=== PATIENT | female | born 1995 | race Caucasian/White ===

== ENCOUNTER 2017-08-27 23:09 | Emergency (ER) | payer MEDICAID, OTHER ==
[~2017-08-27] VITALS: Ht 157.5 cm; Wt 113.5 kg
[~2017-08-27 23:09] MED LIST: ALBU0.086 NEB; ALBU8I INH; DOXY100T PO; METR-1 PO; ULTR50TA PO
[2017-08-27 23:11] VITALS: BP 134/85; PULSE 86; RESP 16; TEMP 98.4; O2SAT 98
== END 2017-08-28 02:00 | disposition left against medical advice (07) ==
LOC: NED 23:09
DX: R51 Headache (principal); Z53.21 Procedure and treatment not carried out due to patient leaving prior to being seen by health care provider
CPT/HCPCS: 99281

== ENCOUNTER 2017-08-28 19:57 | Emergency (ER) | payer OTHER ==
[~2017-08-28] VITALS: Ht 157.5 cm; Wt 112.0 kg
[2017-08-28 19:59] VITALS: BP 157/87; PULSE 98; RESP 16; TEMP 98.7; O2SAT 96
--- NOTE | 2017-08-28 21:20 | PD ---
HPI Chief Complaint: Headache Time Seen by Provider: 21:16 Travel History International Travel<30 days: No Contact w/Intl Traveler<30days: No Traveled to known affect area: No History of Present Illness HPI 23 year-old female history of high-grade headache presents to emergency department today for evaluation of a migraine headache. Patient states this started yesterday. It is generalized, constant, ache. Mostly behind her eyes. States she has been nauseous and vomiting. Denies photophobia. Denies focal deficits or weakness. No recent illnesses, fever, or chills. States this is typical of her migraine headaches. She has no other symptoms to report. PFSH Past Medical History ADHD: No Asthma: Yes Depression: Yes Cancer: No Cardiovascular Problems: No Developmental Delay: No Diabetes: No Diminished Hearing: No GERD: Yes Psychiatric: No Migraines: Yes Seizures: Yes (ONE WHEN LITTLE FROM FEVER) Thyroid Disease: No Ulcer: No : 2 Para: 1 Miscarriage: 1 Past Surgical History Other Surgery: No Social History Alcohol Use: No Tobacco Use: Yes (1/2PPD) Substance Use: No (DENIES) Allergies-Medications (Allergen,Severity, Reaction): Coded Allergies: bee venom protein (honey bee) (Verified Allergy, Severe, 08/28/17) acetaminophen (Verified Allergy, Unknown, 08/28/17) hydrocodone (Verified Allergy, Unknown, 08/28/17) Reported Meds & Prescriptions Reported Meds & Active Scripts Active Reported Proventil Ud 0.083% (2.5 Mg/3 Ml) (Albuterol Sulfate) 2.5 Mg/3 Ml Inha 2.5 Mg NEB Q4HR NEB Ventolin Hfa (Albuterol Sulfate) 8 Gm Aero 2 Puff INH ONCE PRN * SHAKE WELL BEFORE USE * Review of Systems Except as stated in HPI: all other systems reviewed are Neg Physical Exam Narrative GENERAL: Obese female patient, ambulatory and in no acute distress SKIN: Focused skin assessment warm/dry. HEAD: Atraumatic. Normocephalic. EYES: Pupils equal and round. No scleral icterus. No injection or drainage. EOMI. PERRL ENT: No nasal bleeding or discharge. Mucous membranes pink and moist. NECK: Trachea midline. No JVD. No nuchal rigidity. CARDIOVASCULAR: Regular rate and rhythm. No murmur appreciated. RESPIRATORY: No accessory muscle use. Clear to auscultation. Breath sounds equal bilaterally. GASTROINTESTINAL: Abdomen soft, non-tender, nondistended. Hepatic and splenic margins not palpable. MUSCULOSKELETAL: No obvious deformities. No clubbing. No cyanosis. No edema. NEUROLOGICAL: Awake and alert. No obvious cranial nerve deficits. Motor grossly within normal limits. Normal speech. PSYCHIATRIC: Appropriate mood and affect; insight and judgment normal. Data Data Last Documented VS Vital Signs Date Time Temp Pulse Resp B/P (MAP) Pulse Ox O2 Delivery O2 Flow Rate FiO2 08/28/17 19:59 98.7 98 16 157/87 (110) 96 Room Air Orders Orders Iv Access Insert/Monitor (08/28/17 21:19) Ketorolac Inj (Toradol Inj) (08/28/17 21:30) Diphenhydramine Inj (Benadryl Inj) (08/28/17 21:30) Metoclopramide Inj (Reglan Inj) (08/28/17 21:30) Sodium Chlor 0.9% 1000 Ml Inj (Ns 1000 M (08/28/17 21:30) MDM Medical Decision Making Medical Screen Exam Complete: Yes Emergency Medical Condition: Yes Medical Record Reviewed: Yes Differential Diagnosis Migraine headache with or without aura versus tension headache versus cluster headache versus sinusitis Narrative Course 21-year-old female with history of migraine headache presents to the emergency room for evaluation of headache. Neuro exam is nonfocal. Patient appears well. She will be treated with Toradol, Reglan, Benadryl and reassessed [id number] patient is just now getting her pain control. I am unable to assess the results of any intervention at this time. After receiving her medication, patient states she feels completely better. She states she is ready for discharge. She is encouraged to follow-up with a primary care provider and return immediately with any acute worsening symptoms. Diagnosis Primary Impression: Migraine Qualified Codes: G43.909 - Migraine, unspecified, not intractable, without status migrainosus Referrals: Primary Care Physician Patient Instructions: General Instructions, Migraine Headache (ED) Departure Forms: Tests/Procedures, Work Release Enter return to work date: Aug 30, 2017 Additional Instructions: Follow-up with a primary care provider Return immediately with any acute worsening of symptoms Med/Other Pt SpecificInfo: No Change to Meds Disposition: DISCHARGE HOME Condition: Stable Christina Sarkar Aug 28, 2017 21:20
[2017-08-28] MEDS ORDERED: KETOROLAC TROMETHAMINE 30 MG/ML (IVP) VIAL IV PUSH ONE (21:30)
[2017-08-28] MEDS ORDERED: METOCLOPRAMIDE HCL 10 MG/2 ML VIAL IV PUSH ONE (21:30)
[2017-08-28] MEDS ORDERED: SODIUM CHLOR 0.9% 1000 ML INJ 1,000 ML IV ONE (21:30)
[2017-08-28] MEDS ORDERED: diphenhydrAMINE HCL 50 MG/ML VIAL IV PUSH ONE (21:30)
== END 2017-08-28 22:56 | disposition home or self-care (01) ==
LOC: NEPD 19:57
DX: G43.909 Migraine, unspecified, not intractable, without status migrainosus (principal); R11.2 Nausea with vomiting, unspecified; J45.909 Unspecified asthma, uncomplicated; K21.9 Gastro-esophageal reflux disease without esophagitis; R56.9 Unspecified convulsions; F17.200 Nicotine dependence, unspecified, uncomplicated; Z79.51 Long term (current) use of inhaled steroids; Z88.5 Allergy status to narcotic agent; Z88.6 Allergy status to analgesic agent
CPT/HCPCS: 96374; 96375; 99284; J1200; J1885; J2765; J7030

== ENCOUNTER 2017-10-02 14:38 | Emergency (ER) | payer OTHER ==
[~2017-10-02] VITALS: Ht 157.5 cm; Wt 113.5 kg
[~2017-10-02 14:38] MED LIST changes: -DOXY100T PO; -METR-1 PO; -ULTR50TA PO
[2017-10-02 14:39] VITALS: BP 152/78; PULSE 83; RESP 18; TEMP 98.6; O2SAT 98
[2017-10-02] MEDS ORDERED: VENTAER INH (14:59)
[2017-10-02] MEDS ORDERED: BACL10TA PO (15:17)
[2017-10-02] MEDS ORDERED: IBUP1TAB7 PO (15:17)
--- NOTE | 2017-10-02 15:21 | PD ---
HPI Chief Complaint: Back/ Neck Pain or Injury Time Seen by Provider: 15:17 Travel History International Travel<30 days: No Contact w/Intl Traveler<30days: No Traveled to known affect area: No History of Present Illness HPI Examined in the presence of a female nurse at all times. 21-year-old female presents for evaluation of neck and back pain. Symptoms started 3-4 weeks ago. She describes it as a sharp pain on the left side of her neck and lower back. The pain is worse with movement, lifting, flexion and extension of the back. She denies any bowel or bladder incontinence, saddle anesthesia, chest pain or shortness of breath, flank pain, dysuria, abdominal pain, nausea or vomiting. She has been using occasional tramadol and occasional ibuprofen but the pain persisted which prompted evaluation. No other complaints at this time. PFSH Past Medical History ADHD: No Asthma: Yes Depression: Yes Cancer: No Cardiovascular Problems: No Developmental Delay: No Diabetes: No Diminished Hearing: No GERD: Yes Psychiatric: No Respiratory: Yes (asthma) Migraines: Yes Seizures: Yes (ONE WHEN LITTLE FROM FEVER) Thyroid Disease: No Ulcer: No : 2 Para: 1 Miscarriage: 2 Past Surgical History Other Surgery: No Social History Alcohol Use: No Tobacco Use: Yes Substance Use: No Allergies-Medications (Allergen,Severity, Reaction): Coded Allergies: bee venom protein (honey bee) (Verified Allergy, Severe, 10/02/17) acetaminophen (Verified Allergy, Unknown, 10/02/17) hydrocodone (Verified Allergy, Unknown, 10/02/17) Reported Meds & Prescriptions Reported Meds & Active Scripts Active Baclofen 10 Mg Tab 10 Mg PO Q8HR 10 Days Ibuprofen 800 Mg Tab 800 Mg PO Q6HR PRN Reported Ventolin Hfa 18 GM Inh (Albuterol Sulfate) 90 Mcg/Act Aer 2 Puff INH Q4HR PRN Review of Systems Except as stated in HPI: all other systems reviewed are Neg Physical Exam Narrative GENERAL: Well-developed well-nourished female in no acute distress SKIN: Warm and dry. HEAD: Atraumatic. Normocephalic. EYES: Pupils equal and round. No scleral icterus. No injection or drainage. ENT: No nasal bleeding or discharge. Mucous membranes pink and moist. NECK: Trachea midline. No JVD. CARDIOVASCULAR: Regular rate and rhythm. No murmur appreciated. RESPIRATORY: No accessory muscle use. Clear to auscultation. Breath sounds equal bilaterally. GASTROINTESTINAL: Abdomen soft, non-tender, nondistended. Hepatic and splenic margins not palpable. MUSCULOSKELETAL: No obvious deformities. No tenderness to palpation along the cervical thoracic or lumbar midline spine. No CVA tenderness. 5 out of 5 muscle strength in the upper and lower extremities. There is some reproducible to palpation to the left posterior neck and lumbar spine musculature. NEUROLOGICAL: Awake and alert. No obvious cranial nerve deficits. Motor grossly within normal limits. Normal speech. Data Data Last Documented VS Vital Signs Date Time Temp Pulse Resp B/P (MAP) Pulse Ox O2 Delivery O2 Flow Rate FiO2 10/02/17 14:39 98.6 83 18 152/78 (102) 98 Room Air [facility] Medical Decision Making Medical Screen Exam Complete: Yes Emergency Medical Condition: Yes Medical Record Reviewed: Yes Differential Diagnosis Muscle strain, muscle spasm, fracture, epidural abscess Narrative Course Physical examination is reassuring. The patient appears to be having muscle skeletal pain in her neck and lower back. I don't suspect infectious etiology or renal stone or spinal cord compromise. The patient will be treated symptomatically with muscle relaxants and ibuprofen. Diagnosis Primary Impression: Neck pain Additional Impression: Lower back pain Qualified Codes: M54.5 - Low back pain Additional Instructions: Medication as needed. Take ibuprofen with meals. Do not drive or drink alcohol when taking baclofen. Follow up with primary care physician in 2 weeks. Return for any emergent medical conditions. Med/Other Pt SpecificInfo: Prescription(s) given Scripts Baclofen (Baclofen) 10 Mg Tab 10 MG PO Q8HR for 10 Days, TAB 0 Refills Prov: David Mayes MD 10/02/17 Ibuprofen (Ibuprofen) 800 Mg Tab 800 MG PO Q6HR Y for PAIN, #40 TAB 0 Refills Prov: David Mayes MD 10/02/17 Disposition: 01 DISCHARGE HOME Condition: Stable Jj Franklin Oct 02, 2017 15:20
== END 2017-10-02 16:01 | disposition home or self-care (01) ==
LOC: NEPK 14:38
DX: M54.2 Cervicalgia (principal); M54.5 Low back pain; J45.909 Unspecified asthma, uncomplicated; F32.9 Major depressive disorder, single episode, unspecified; K21.9 Gastro-esophageal reflux disease without esophagitis; Z72.0 Tobacco use; Z79.51 Long term (current) use of inhaled steroids; Z88.6 Allergy status to analgesic agent; Z88.5 Allergy status to narcotic agent
CPT/HCPCS: 99283

== ENCOUNTER 2018-01-12 17:45 | Emergency (ER) | payer OTHER ==
[~2018-01-12] VITALS: Ht 157.5 cm; Wt 113.5 kg
[~2018-01-12 17:45] MED LIST changes: -ALBU0.086 NEB; -ALBU8I INH; +BACL10TA PO; +IBUP1TAB7 PO; +VENTAER INH
[2018-01-12 17:47] VITALS: BP 141/79; PULSE 64; RESP 14; TEMP 98.9; O2SAT 98
[2018-01-12] MEDS ORDERED: CLIN300C5 PO (19:51)
[2018-01-12] MEDS ORDERED: CHLO.12%30 SWISH-SPIT (19:51)
--- NOTE | 2018-01-12 19:51 | PD ---
HPI Chief Complaint: Oral / Dental Pain or Problem Time Seen by Provider: 19:40 Travel History International Travel<30 days: No Contact w/Intl Traveler<30days: No Traveled to known affect area: No History of Present Illness HPI Patient is a 22-year-old male presented to emergency department for evaluation of right upper gum swelling and a "funny taste" in her mouth after having a molar extracted on Saturday. She denies any fevers, headache, jaw pain. She reports compliance with the penicillin that she was prescribed. Patient has not contacted a dentist due to it being the weekend. Symptoms are exacerbated with chewing, onset was gradual. Symptoms are moderate in nature. She has no other complaints at this time. She reports allergy to [place] but states it makes her nauseated and causes diarrhea. PFSH Past Medical History Asthma: Yes Depression: Yes GERD: Yes Migraines: Yes ?: Not LMP: 01/12/18 : 2 Para: 1 Miscarriage: 2 Past Surgical History Other Surgery: No Social History Alcohol Use: No Tobacco Use: Yes Substance Use: No Allergies-Medications (Allergen,Severity, Reaction): Coded Allergies: bee venom protein (honey bee) (Verified Allergy, Severe, 10/02/17) acetaminophen (Verified Allergy, Unknown, 10/02/17) hydrocodone (Verified Allergy, Unknown, 10/02/17) Reported Meds & Prescriptions Reported Meds & Active Scripts Active Baclofen 10 Mg Tab 10 Mg PO Q8HR 10 Days Ibuprofen 800 Mg Tab 800 Mg PO Q6HR PRN Reported Ventolin Hfa 18 GM Inh (Albuterol Sulfate) 90 Mcg/Act Aer 2 Puff INH Q4HR PRN Review of Systems Except as stated in HPI: all other systems reviewed are Neg HENT: Positive: Dental Difficulties Physical Exam Narrative GENERAL: Well-developed, well-nourished, well-appearing female. Presenting in no acute distress. SKIN: Warm and dry. MOUTH: Mucous membranes moist, no lesions, tongue appears normal. Gums surrounding the extraction site from the second molar appear edematous, no fluctuance or drainage noted. HEAD: Normocephalic. EYES: No scleral icterus. No injection or drainage. NECK: Supple, trachea midline. No JVD or lymphadenopathy. CARDIOVASCULAR: Regular rate and rhythm without murmurs, gallops, or rubs. RESPIRATORY: Breath sounds equal bilaterally. No accessory muscle use. GASTROINTESTINAL: Abdomen soft, non-tender, nondistended. MUSCULOSKELETAL: No cyanosis, or edema. BACK: Nontender without obvious deformity. No CVA tenderness. Data Data Last Documented VS Vital Signs Date Time Temp Pulse Resp B/P (MAP) Pulse Ox O2 Delivery O2 Flow Rate FiO2 01/12/18 17:47 98.9 64 14 141/79 (99) 98 MDM Medical Decision Making Medical Screen Exam Complete: Yes Emergency Medical Condition: Yes Interpretation(s) Vital Signs Date Time Temp Pulse Resp B/P (MAP) Pulse Ox O2 Delivery O2 Flow Rate FiO2 01/12/18 17:47 98.9 64 14 141/79 (99) 98 Differential Diagnosis Gingivitis versus cellulitis versus dry socket versus other Narrative Course Patient presented for evaluation of a funny taste and swelling to her gums after having her second molar extracted on Saturday. Her vital signs are stable, she is afebrile well-appearing. On exam her gums are mildly edematous but no significant erythema and there is no fluctuance noted. Antibiotics will be changed to clindamycin and patient will be given chlorhexidine mouthwash. She is encouraged to gently swish and spit. She is encouraged to follow-up with her dentist in the morning. She is advised to return to emergency department for any new or worsening symptoms. Patient verbalized understanding of these instructions. Patient is stable for discharge. Diagnosis Primary Impression: H/O tooth extraction Qualified Codes: K08.409 - Partial loss of teeth, unspecified cause, unspecified class Additional Impression: Gingival swelling Referrals: Dentist 1 day Call for appointment in the morning Patient Instructions: Chlorhexidine (Into the mouth), General Instructions Additional Instructions: Gently swish and spit chlorhexidine mouthwash Follow-up with your dentist in the morning Take antibiotics as directed Return to emergency department for any new or worsening symptoms Continue pain medication as previously prescribed Med/Other Pt SpecificInfo: Prescription(s) given Scripts Clindamycin (Clindamycin) 300 Mg Cap 300 MG PO TID for Infection for 7 Days, CAP 0 Refills Prov: Rolanda Lima 01/12/18 Chlorhexidine Gluconate (Mouth) Liq (Chlorhexidine Gluconate (Mouth) Liq) 0.12% Soln 15 ML SWISH-SPIT BID for 10 Days, #300 ML 0 Refills Prov: Rolanda Lima 01/12/18 Disposition: 01 DISCHARGE HOME Condition: Stable Rolanda Lima Jan 12, 2018 19:51
[2018-01-12] MEDS ORDERED: PERC5TAB12 PO (19:55)
== END 2018-01-12 20:20 | disposition home or self-care (01) ==
LOC: NEPD 17:45
DX: R22.0 Localized swelling, mass and lump, head (principal); J45.909 Unspecified asthma, uncomplicated; F32.9 Major depressive disorder, single episode, unspecified; K21.9 Gastro-esophageal reflux disease without esophagitis; Z79.51 Long term (current) use of inhaled steroids; Z79.899 Other long term (current) drug therapy; Z72.0 Tobacco use; Z88.6 Allergy status to analgesic agent; Z88.5 Allergy status to narcotic agent
CPT/HCPCS: 99283